=== PATIENT | female | born 1965 | race Caucasian/White ===

== ENCOUNTER → 2016-06-02 | Outpatient (CLI) | payer OTHER ==
--- NOTE | 2016-06-02 09:23 | DX ---
Cervical Spine, 4 Views including lateral neutral flexion and extension History: Pain. Evaluate for rheumatoid arthritis. Findings: In the neutral lateral position there is overall straightening of the cervical spine with s light reversal centered at the C4-C5 level.. There is mild narrowing of the C5-C6 and moderate narrow ing of the C6-C7 disk spaces. There are small anterior and posterior osteophytes between C5 and C7.. There is no prevertebral soft tissue swelling. No erosive change, demineralization or fracture deform ity is identified. There is mildly limited flexion and extension range of motion. No instability is i dentified on lateral flexion-extension views. The odontoid view and C1-C2 articulation appears normal . There is degenerative spurring involving the left C4-C5 facet joint. Impression: 1. Spondylosis between C5 and C7 2. No radiographic evidence for rheumatoid disease. 3. No instability identified. 4. Cervical straightening and limited range of motion suggests an element of muscle spasm.
== END ==
LOC: BMCIMAGING 08:46
PROVIDERS: ATTEND Internal Medicine Rheumatology
DX: M48.02 Spinal stenosis, cervical region (principal); M25.78 Osteophyte, vertebrae

== ENCOUNTER → 2016-09-09 | Outpatient (CLI) | payer OTHER | LOC: FIMAGING 08:55 | DX: Z12.31 Encounter for screening mammogram for malignant neoplasm of breast (principal) | CPT/HCPCS: G0202 ==

== ENCOUNTER → 2016-11-13 | Outpatient (CLI) | payer OTHER | LOC: FIMAGING 09:19 | PROVIDERS: ATTEND Family Medicine | DX: Z12.39 Encounter for other screening for malignant neoplasm of breast (principal); R92.0 Mammographic microcalcification found on diagnostic imaging of breast | CPT/HCPCS: G0206 ==

== ENCOUNTER → 2017-11-12 | Outpatient (CLI) | payer OTHER ==
[~2017-11-12] MED LIST: GADOBUTROL 10 ML VIAL IVP ONE
== END ==
LOC: FIMAGING 08:12
PROVIDERS: ATTEND Family Medicine
DX: Z12.31 Encounter for screening mammogram for malignant neoplasm of breast (principal); Z80.3 Family history of malignant neoplasm of breast; R92.8 Other abnormal and inconclusive findings on diagnostic imaging of breast
CPT/HCPCS: A9585